=== PATIENT | female | born 1975 | race Hispanic/Latino ===

== ENCOUNTER 2018-04-03 17:26 | Emergency (ER) | payer BC, OTHER ==
[2018-04-03] MEDS ORDERED: HYDROCODONE/APAP 10/325 TAB ONE (18:04)
--- NOTE | 2018-04-03 19:09 | EDPHYS ---
Physician Documentation [facility] Name: Ava Winslow Age: 42 yrs Sex: Female : 1975 Arrival Date: 04/03/2018 Time: 17:36 Bed 19 Private MD: ED Physician Blair Schwartz HPI: 04/03 19:00 This 42 yrs old Female presents to ER via Ambulatory with complaints of Knee pm1 Injury. 22:35 The patient presents with pain, that is acute. The complaints affect the lateral aspect pm1 of left knee. Context: The problem was sustained outdoors, resulted from twisting of the extremity, the patient can partially bear weight, the patient is able to ambulate, Problem is a result from a previous injury: No. Onset: The symptoms/episode began/occurred today. Modifying factors: The symptoms are alleviated by remaining still, the symptoms are aggravated by bending knee. Associated signs and symptoms: Pertinent positives: swelling, Pertinent negatives calf tenderness, fever, numbness, tingling. Treatment prior to arrival includes: no previous treatment. Severity of symptoms: in the emergency department the symptoms are unchanged. The patient has not experienced similar symptoms in the past. Patient twisted her left knee while trying to get out of her car. 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 - Social history:: Smoking status: Patient uses tobacco products, smokes one-half pack cigarettes per day. - Ebola Screening: : Patient negative for fever greater than or equal to 101.5 degrees Fahrenheit, and additional compatible Ebola Virus Disease symptoms Patient denies exposure to infectious person Patient denies travel to an Ebola-affected area in the 21 days before illness onset No symptoms or risks identified at this time. ROS: 22:35 Constitutional: Negative for fever, chills, and weight loss, Eyes: Negative for injury, pm1 pain, redness, and discharge, ENT: Negative for injury, pain, and discharge, Neck: Negative for injury, pain, and swelling, Cardiovascular: Negative for chest pain, palpitations, and edema, Respiratory: Negative for shortness of breath, cough, wheezing, and pleuritic chest pain, Abdomen/GI: Negative for abdominal pain, nausea, vomiting, diarrhea, and constipation, Back: Negative for injury and pain. 22:35 Skin: Negative for injury, rash, and discoloration, Neuro: Negative for headache, weakness, numbness, tingling, and seizure. 22:35 MS/extremity: Positive for pain, of the lateral aspect of left knee. Exam: 22:35 Constitutional: This is a well developed, well nourished patient who is awake, alert, pm1 and in no acute distress. Head/Face: Normocephalic, atraumatic. Chest/axilla: Normal chest wall appearance and motion. Nontender with no deformity. No lesions are appreciated. Cardiovascular: Regular rate and rhythm with a normal S1 and S2. No gallops, murmurs, or rubs. Normal PMI, no JVD. No pulse deficits. Respiratory: Lungs have equal breath sounds bilaterally, clear to auscultation and percussion. No rales, rhonchi or wheezes noted. No increased work of breathing, no retractions or nasal flaring. Abdomen/GI: Soft, non-tender, with normal bowel sounds. No distension or tympany. No guarding or rebound. No evidence of tenderness throughout. Back: No spinal tenderness. No costovertebral tenderness. Full range of motion. Skin: Warm, dry with normal turgor. Normal color with no rashes, no lesions, and no evidence of cellulitis. 22:35 Musculoskeletal/extremity: Extremities: grossly normal except: noted in the lateral aspect of left knee: tenderness, There is no evidence of decreased ROM, deformity. 22:35 Neuro: Orientation: is normal, Motor: moves all fours. Vital Signs: 17:45 BP 162 / 100; Pulse 103; Resp 17; Temp 98.0; Pulse Ox 99% on R/A; Weight 113.4 kg; aj Height 5 ft. 2 in. (157.48 cm); 19:07 BP 152 / 87; Pulse 91; Resp 18; Temp 97.8; Pulse Ox 99% on R/A; ph 17:45 Body Mass Index 45.73 (113.40 kg, 157.48 cm) aj MDM: 17:47 Patient medically screened. pm1 19:06 Data reviewed: vital signs. Data interpreted: Pulse oximetry: on room air is 99 %. pm1 Interpretation: normal. Counseling: I had a detailed discussion with the patient and/or guardian regarding: the historical points, exam findings, and any diagnostic results supporting the discharge/admit diagnosis, radiology results, the need for outpatient follow up, for definitive care, a orthopedic surgeon, to return to the emergency department if symptoms worsen or persist or if there are any questions or concerns that arise at home. 04/03 17:47 Order name: Knee Left 3 View XRAY pm1 04/03 18:23 Order name: Crutches; Complete Time: 18:39 pm1 04/03 18:23 Order name: Knee Immobilizer; Complete Time: 18:39 pm1 Administered Medications: 18:03 Drug: [place] 10 mg-325 mg 1 tabs Route: PO; ph 19:06 Follow up: Response: No adverse reaction ph Disposition: 04/04 08:09 Co-signature as Attending Physician, Blair Schwartz MD. rn Disposition: 04/03/18 19:08 Discharged to Home. Impression: Sprain of unspecified site of left knee. - Condition is Stable. - Discharge Instructions: Crutch Use, Knee Pain. - Prescriptions for Tylenol- Codeine #3 300-30 mg Oral Tablet - take 2 tablets by ORAL route every 6 hours As needed; 20 tablet. - Medication Reconciliation Form, Thank You Letter, Prescription Opioid Use form. - Follow up: Emergency Department; When: As needed; Reason: Worsening of condition. Follow up: Tyson Marcano MD; When: 2 - 3 days; Reason: Recheck today's complaints, Continuance of care, Re-evaluation by your physician. - Problem is new. - Symptoms have improved. Signatures: Dispatcher [employer] Yesenia Marques RN RN aj Nieto, Roman, MD MD rn Hall, Patricia, RN RN ph Marinas, Patrick, NP OVEN DRIER TENDER pm1 Corrections: (The following items were deleted from the chart) 04/03 19:21 19:08 04/03/2018 19:08 Discharged to Home. Impression: Sprain of unspecified site of ph left knee. Condition is Stable. Forms are Medication Reconciliation Form, Thank You Letter, Antibiotic Education, Prescription Opioid Use. Follow up: Emergency Department; When: As needed; Reason: Worsening of condition. Follow up: Tyson Marcano; When: 2 - 3 days; Reason: Recheck today's complaints, Continuance of care, Re-evaluation by your physician. Problem is new. Symptoms have improved. pm1
--- NOTE | 2018-04-03 19:09 | ER ---
Nurse's Notes [facility] Name: Ava Winslow Age: 42 yrs Sex: Female : 1975 Arrival Date: 04/03/2018 Time: 17:36 Bed 19 Private MD: Diagnosis: Sprain of unspecified site of left knee Presentation: 04/03 17:43 Presenting complaint: Patient states: Left knee pain that started this AM after patient aj reported twisting knee. Transition of care: patient was not received from another setting of care. Onset of symptoms was April 03, 2018. Risk Assessment: Do you want to hurt yourself or someone else? Patient reports no desire to harm self or others. Initial Sepsis Screen: Does the patient meet any 2 criteria? No. Patient's initial sepsis screen is negative. Does the patient have a suspected source of infection? No. Patient's initial sepsis screen is negative. Care prior to arrival: None. 17:43 Method Of Arrival: Ambulatory aj 17:43 Acuity: LETHA 4 aj Triage Assessment: 17:45 General: Appears in no apparent distress. comfortable, Behavior is calm, cooperative, aj appropriate for age. Pain: Complains of pain in left knee. Neuro: Level of Consciousness is awake, alert, obeys commands, Oriented to person, place, time, situation, Appropriate for age. Respiratory: Airway is patent Respiratory effort is even, unlabored, Respiratory pattern is regular, symmetrical. Derm: Skin is intact, is healthy with good turgor, Skin is pink, warm \T\ dry. normal. Musculoskeletal: Range of motion: intact in all extremities, Reports pain in left knee. 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 - Social history:: Smoking status: Patient uses tobacco products, smokes one-half pack cigarettes per day. - Ebola Screening: : Patient negative for fever greater than or equal to 101.5 degrees Fahrenheit, and additional compatible Ebola Virus Disease symptoms Patient denies exposure to infectious person Patient denies travel to an Ebola-affected area in the 21 days before illness onset No symptoms or risks identified at this time. Screenin:04 Abuse screen: Denies threats or abuse. Denies injuries from another. Nutritional ph screening: No deficits noted. Tuberculosis screening: No symptoms or risk factors identified. Fall Risk None identified. Assessment: 18:03 General: Appears in no apparent distress. comfortable, well groomed, Behavior is calm, ph cooperative, appropriate for age. Pain: Complains of pain in left knee. Neuro: Level of Consciousness is awake, alert, obeys commands, Oriented to person, place, time, situation. Cardiovascular: Capillary refill < 3 seconds Patient's skin is warm and dry. Respiratory: Airway is patent Respiratory effort is even, unlabored. Derm: Skin is intact, is healthy with good turgor, Skin is pink, warm \T\ dry. Musculoskeletal: Circulation, motion, and sensation intact. Range of motion: intact in all extremities. 19:06 Reassessment: Patient appears in no apparent distress at this time. Patient and/or ph family updated on plan of care and expected duration. Pain level reassessed. Patient is alert, oriented x 3, equal unlabored respirations, skin warm/dry/pink. Pt resting quietly, awaiting Xray results. Vital Signs: 17:45 BP 162 / 100; Pulse 103; Resp 17; Temp 98.0; Pulse Ox 99% on R/A; Weight 113.4 kg; aj Height 5 ft. 2 in. (157.48 cm); 19:07 BP 152 / 87; Pulse 91; Resp 18; Temp 97.8; Pulse Ox 99% on R/A; ph 17:45 Body Mass Index 45.73 (113.40 kg, 157.48 cm) aj ED Course: 17:36 Patient arrived in ED. es 17:44 Triage completed. aj 17:45 Arm band placed on right wrist. Patient placed in an exam room. aj 17:47 Nader Montero NP is PHCP. pm1 17:47 Blair Schwartz MD is Attending Physician. pm1 17:51 Adilene Bryson, RN is Primary Nurse. ph 18:04 Patient has correct armband on for positive identification. Bed in low position. Call light in reach. Side rails up X 1. 18:12 X-ray completed. Portable x-ray completed in exam room. Patient tolerated procedure ml well. 18:13 Knee Left 3 View XRAY In Process Unspecified. EDMS 19:07 Tyson Marcano MD is Referral Physician. pm1 19:07 No provider procedures requiring assistance completed. Patient did not have IV access ph during this emergency room visit. Administered Medications: 18:03 Drug: [place] 10 mg-325 mg 1 tabs Route: PO; ph 19:06 Follow up: Response: No adverse reaction ph Outcome: 19:08 Discharge ordered by . pm1 19:21 Discharged to home ambulatory, with crutches, with significant other. ph 19:21 Condition: good 19:21 Discharge instructions given to patient, Instructed on discharge instructions, follow up and referral plans. medication usage, Demonstrated understanding of instructions, follow-up care, medications, Prescriptions given X 1. 19:21 Patient left the ED. ph Signatures: Dispatcher [employer] Yesenia Marques RN RN aj Salyer, Edna es Lopez, Melissa ml Hall, Patricia, RN RN ph Marinas, Patrick, QUE FUR TINTER pm1
--- NOTE | 2018-04-03 19:25 | RAD REPORT ---
EXAM DESCRIPTION: RAD - Knee Left 3 View - 04/03/2018 6:14 pm CLINICAL HISTORY: PAIN<Reason For Exam>PAIN COMPARISON: No comparisons<Comparisons> FINDINGS: No fracture, dislocation or periosteal reaction.No joint effusion seen. No joint space jessica rowing. No soft tissue abnormality. IMPRESSION: Negative left knee. Clinical concerns for internal derangement or occult bony injury could be further assessed with MR im aging.
== END 2018-04-03 19:21 | disposition home or self-care (01) ==
LOC: ER 17:26
DX: S83.92XA Sprain of unspecified site of left knee, initial encounter (principal); I10 Essential (primary) hypertension; F17.210 Nicotine dependence, cigarettes, uncomplicated; X50.1XXA Overexertion from prolonged static or awkward postures, initial encounter; Y92.89 Other specified places as the place of occurrence of the external cause
CPT/HCPCS: 99283